=== PATIENT | male | born 1970 | race Caucasian/White ===

== ENCOUNTER → 2016-12-17 | Outpatient (CLI) | payer BC ==
[~2016-12-17] MED LIST: ALLERGY INJ; CETI10TA84 PO; CRS/10 PO; FLUT0.15 NAE; LISI-787 PO; LPR50X PO; MONT1TAB3 PO; NAPR-1169 PO; PRLSR20 PO; PROAIR HFA INH; SYMIN160 INH
[2016-12-17 17:53] LABS: ESTIMATED AVERAGE GLUCOSE 111 mg/dl; HA1C FLAG Normal (Normal)
== END | disposition home or self-care (01) ==
LOC: C.LABMFLN 08:00
PROVIDERS: ATTEND Family Medicine
DX: R73.01 Impaired fasting glucose (principal)

== ENCOUNTER → 2017-05-05 | Outpatient (CLI) | payer OTHER, BC ==
[2017-05-05 13:49] LABS: INR 0.9 (0.9-1.1); PARTIAL THROMBOPLASTIN RATIO 0.9; PROTHROMBIN TIME (PATIENT) 9.5 SECONDS (9.0-12.0)
--- NOTE | 2017-05-12 06:01 | CODING QUERY NO DIAGNOSIS ---
TREATMENT RENDERED WITHOUT A DIAGNOSIS To promote full compliance with coding requirements relating to patient care, physician participation is requested in all cases of administration manager uncertainty. Please assist us with providing a diagnosis/symptom for the test(s) below: A diagnosis/symptom was not documented on your Order. A valid diagnosis/symptom is required to bill all insurances. Please remember that we are unable to code a diagnosis of rule out, probable, possible, questionable, or suspected. DATE OF SERVICE: 05/05/17 (NOTE: NO ORDER IS FOUND IN OUR SYSTEM) Tests that require a diagnosis: * PROTHROMBIN TIME DIAGNOSIS: Provider Signature: Date: Thank you Disha Huston [facility] Information Management Once completed, please kindly fax back to [phone] For questions please call [phone]
== END | disposition home or self-care (01) ==
LOC: C.LABMFLN 09:45
PROVIDERS: ATTEND Physician Assistant Medical
DX: Z01.812 Encounter for preprocedural laboratory examination (principal); M51.9 Unspecified thoracic, thoracolumbar and lumbosacral intervertebral disc disorder

== ENCOUNTER 2017-05-12 11:37 | Observation (INO) | payer OTHER, BC ==
[2017-05-04 12:05] VITALS: BMI 31.0
--- NOTE | 2017-05-04 12:26 | PAT Medication Instructions ---
Service Date May 04, 2017. Current Home Medication List Budesonide/Formoterol Fumarate (Symbicort 160/4.5 Inhaler ), 2 PUFFS INH BID Cetirizine (Zyrtec), 10 MG PO QAM Fluticasone Propionate (Nasal) (Flonase Allergy Relief), 2 SPRAYS KRYSTYNA QAM Lisinopril/Hctz (Zestoretic 20MG/12.5MG), 1 TAB PO QAM Metoprolol Tartrate (Metoprolol Tartrate), 1 TAB PO BID Montelukast Sodium (Singulair), 10 MG PO QAM Naproxen (Naprosyn), 500 MG PO 3XWK PRN for Pain Omeprazole (Prilosec), 40 MG PO QAM Rosuvastatin Calcium (Crestor), 10 MG PO QPM [Allergy Inj] [Proair Hfa ], 2 PUFFS INH Q4WK PRN for Cough Medication Instructions For Your Scheduled Surgery - Hold the following medications the morning of surgery: Lisinopril/Hctz (Zestoretic 20MG/12.5MG), 1 TAB PO QAM Cetirizine (Zyrtec), 10 MG PO QAM Naproxen (Naprosyn), 500 MG PO 3XWK PRN for Pain (otherwise okay to continue per surgeon) - Take the following medications the morning of surgery with a sip of water OTHERWISE NOTHING TO EAT OR DRINK AFTER MIDNIGHT: Budesonide/Formoterol Fumarate (Symbicort 160/4.5 Inhaler ), 2 PUFFS INH BID Omeprazole (Prilosec), 40 MG PO QAM [Proair Hfa ], 2 PUFFS INH Q4WK PRN for Cough (use if needed; BRING TO HOSPITAL) Montelukast Sodium (Singulair), 10 MG PO QAM Metoprolol Tartrate (Metoprolol Tartrate), 1 TAB PO BID Fluticasone Propionate (Nasal) (Flonase Allergy Relief), 2 SPRAYS KRYSTYNA QAM - Take the following medications as scheduled the night before surgery: Budesonide/Formoterol Fumarate (Symbicort 160/4.5 Inhaler ), 2 PUFFS INH BID Rosuvastatin Calcium (Crestor), 10 MG PO QPM [Proair Hfa ], 2 PUFFS INH Q4WK PRN for Cough Metoprolol Tartrate (Metoprolol Tartrate), 1 TAB PO BID If you have any questions please call us at [phone] or [phone] or [phone]
--- NOTE | 2017-05-04 13:12 | DIAGNOSTIC IMAGING REPORT ---
TWO VIEW CHEST CLINICAL HISTORY: Preoperative examination. Chronic cough. FINDINGS: PA and lateral chest radiographs are obtained. No prior studies are available for comparison at the time of dictation. The cardiomediastinal silhouette is unremarkable. There are low lung volumes. The lungs and pleural spaces are clear. There is no pneumothorax. The bony thorax appears intact. IMPRESSION: Low lung volumes with no active disease in the chest. Electronically signed by: Candelario Whitmore M.D. 05/04/2017 1:11 PM Dictated Date/Time: 05/04/2017 1:10 PM
[2017-05-04 13:21] LABS: BASO % 0.9 %; COMPLETE YES; EOS % 3.2 %; HEMATOCRIT 44.8 % (42-52); IG% 0.4 %; LYMPH % 28.9 %; LYMPH ABS # 3.21 K/uL (1.2-3.4); MEAN CELL VOLUME 94.3 fL (80-100); MEAN CORPUSCULAR HEMOGLOBIN 32.4 pg (25-34); MEAN CORPUSCULAR HGB CONC 34.4 g/dl (32-36); MEAN PLATELET VOLUME 10.3 fL (7.4-10.4); MONO % 7.5 %; NEUT % 59.1 %; PLATELET COUNT 293 K/uL (130-400); RED BLOOD COUNT 4.75 M/uL (4.7-6.1); WHITE BLOOD COUNT 11.12 K/uL (4.8-10.8)
[2017-05-04 13:32] LABS: URINE APPEARANCE CLEAR (CLEAR); URINE BILIRUBIN NEG (NEG); URINE COLOR YELLOW; URINE NITRITE NEG (NEG); URINE SPECIFIC GRAVITY 1.017 (1.000-1.030); UROBILINOGEN NEG (NEG)
[2017-05-04 13:37] LABS: BUN/CREATININE RATIO 7.7 (10-20); CALCIUM 9.9 mg/dl (8.5-10.1); CREATININE 1.3 mg/dl (0.60-1.40); POTASSIUM 4.4 mmol/L (3.5-5.1)
[2017-05-04 13:38] LABS: MANUAL MICROSCOPIC REQUIRED? NO; REVIEW REQ? NO
[2017-05-12] VITALS (7 sets, daily range): BP systolic 110–136; BP diastolic 73–93; PULSE 84–106; TEMP 36.4–37.3; O2SAT 96–97; Ht 172.7 cm; Wt 93.9 kg
[~2017-05-12] VITALS: Ht 172.7 cm; Wt 93.9 kg
[~2017-05-12 11:37] MED LIST changes: +CEFAZOLIN 2000 MG/60 ML D5W 60 ML IV SCH; +LACTATED RINGER'S 1000ML 1,000 ML IV SCH; +NSS 1000ML IV SCH
[2017-05-12] MEDS ORDERED: MIDAZOLAM HCL 1 MG/ML 2ML VIAL ONE (12:07)
[2017-05-12] MEDS ORDERED: HYDROmorphone INJ 2 MG/ML SYR/VIAL ONE (12:07)
[2017-05-12] MEDS ORDERED: KETAMINE HCL INJ 50 MG/ML 10 ML VIAL ONE (12:07)
[2017-05-12] MEDS ORDERED: FENTANYL CITRATE INJ 50 MCG/1 ML 2 ML VIAL ONE ×2 (12:07→14:58)
[2017-05-12] MEDS ORDERED: LARYING-O-JET KIT (LTA) ONE ×2 (12:12)
--- NOTE | 2017-05-12 13:11 | History and Physical ---
History & Physical Date May 12, 2017. Chief Complaint Back and lower extremity difficulty pain and legs giving way History of Present Illness The patient is a 46 year old male with complaints of back and lower extremity difficulty paresthesias and numbness is a delightful patient known him for approximately 1 year in duration we treated him conservatively for all left. He was worked up extensively for pathology both cervical spine and the lumbar spine. Determined with spinal stenosis and disc herniation L4 5. His major problem. He is here for elective surgery L4 5 laminectomy and discectomy. He has failed all forms of conservative measures Additional History Hepatic Disease: No Endocrine Disorder: No Kidney Disease: No Hypertension: No Heart Disease: No Bleeding Tendencies: No Infectious Diseases: No Allergies Coded Allergies: No Known Allergies (Unverified , 05/12/17) Home Medications Scheduled Budesonide/Formoterol Fumarate (Symbicort 160/4.5 Inhaler ), 2 PUFFS INH BID Cetirizine (Zyrtec), 10 MG PO QAM Fluticasone Propionate (Nasal) (Flonase Allergy Relief), 2 SPRAYS KRYSTYNA QAM Lisinopril/Hctz (Zestoretic 20MG/12.5MG), 1 TAB PO QAM Metoprolol Tartrate (Metoprolol Tartrate), 1 TAB PO BID Montelukast Sodium (Singulair), 10 MG PO QAM Omeprazole (Prilosec), 40 MG PO QAM Rosuvastatin Calcium (Crestor), 10 MG PO QPM Scheduled PRN Naproxen (Naprosyn), 500 MG PO 3XWK PRN for Pain [Proair Hfa ], 2 PUFFS INH Q4WK PRN for Cough Miscellaneous Medications [Allergy Inj] Physical Examination Skin: warm/dry, no rash Eyes: normal inspection ENT: normal ENT inspection, pharynx normal Head: normocephalic Neck: supple, trachea midline Respiratory/Chest: lungs clear, no respiratory distress Cardiovascular: regular rate, rhythm Abdomen / GI: normal bowel sounds Back: normal inspection Extremities: + pertinent finding (pain with straight leg raising numbness and tingling slight weakness of quadriceps and dorsiflexion on the right) Diagnosis Spinal stenosis and disc herniation L4 5 lumbar ASA Classification: ASA Class II Plan of Treatment Lumbar spine laminectomy L4 5 and discectomy L4 5. Estimated stay in the hospital 24 hours. Thank
[2017-05-12] MEDS ORDERED: BACITRACIN 50000 UNIT VIAL ONE (13:15)
[2017-05-12] MEDS ORDERED: THROMBIN FOR SOLN 20000 UNIT KIT ONE (13:15)
[2017-05-12] MEDS ORDERED: VANCOMYCIN HCL 1000MG/20ML VIAL ONE (13:15)
[2017-05-12] MEDS ORDERED: GELATIN SPONGE SZ 100 ONE (13:15)
[2017-05-12] MEDS ORDERED: BUPIVACAINE 0.5 % 5 MG/1 ML MPF 30ML VIAL ONE (13:17)
--- NOTE | 2017-05-12 14:42 | DIAGNOSTIC IMAGING REPORT ---
INTRAOPERATIVE FLUOROSCOPIC IMAGE OF THE LUMBAR SPINE CLINICAL HISTORY: L4-L5 laminectomy. COMPARISON STUDY: Lumbar spine MRI August 24, 2016. Fluoroscopy time: 6.6 seconds. FINDINGS: Single lateral fluoroscopic image demonstrates a surgical instrument directed toward the posterior aspect at the L4-L5 disc space. IMPRESSION: Intraoperative localization of the L4-L5 disc space. Electronically signed by: Estevan Kay M.D. 05/12/2017 2:40 PM Dictated Date/Time: 05/12/2017 2:39 PM
--- NOTE | 2017-05-12 14:51 | [facility] Operative Report ---
Operative Report Operative Date May 12, 2017. Pre-Operative Diagnosis Spinal stenosis and disc herniation L4 5 lumbar Post-Operative Diagnosis Spinal stenosis and disc herniation L4 5 lumbar Procedure(s) Performed L4-L5 Laminectomy and discectomy L4 [address] Baltazar Belle Director Of Exhibit Development Surgeon(s) Pillo Zabala PA-C Estimated Blood Loss 25mL Findings Spinal stenosis and disc herniation L4 5 Specimens None Drains one Hemovac Anesthesia Gen. Complication(s) None Disposition Recovery Room / PACU Indications Back and lower extremity difficulty paresthesias numbness tingling weakness Description of Procedure Patient was taken to the operating room. General intubated anesthetic provided patient. A frederick placed prone to tissue areas protected. With Betadine prep with ChloraPrep. Draped sterile A skin incision fashion incision dissecting the soft tissue muscle breaker layer over the facet joints we came down at the pedicle for we went down 2 cm to the bottom of the lamina. We did a laminectomy Central L4 5 foraminotomies partial facetectomies we protected all stability structures I then retracted the dura and nerve root to a medial direction off the right-hand side at a formal discectomy with various size pituitary rongeurs. Final x-ray obtained demonstrating the proper area of the spine. We irrigated thoroughly placed some Gelfoam over the dural structures 1 g of vancomycin powder placed. Hemovac drain placed as well to close fascia fashion with 1 Vicryl suture to well on the subcuticular layer and 3-0 nylon the skin and sterile dressing applied patient returned to recovery room satisfactory and stable there were no apparent interoperative complications. Sponge and needle count correct at the close. Thank you I attest to the content of the Intraoperative Record and any orders documented therein. Any exceptions are noted below.
[2017-05-12] MEDS ORDERED: GLYCOPYRROLATE INJ 0.2 MG/ML VIAL ONE (14:56)
[2017-05-12] MEDS ORDERED: LIDOCAINE HCL 2% 2 ML VIAL (20MG/ML) ONE (14:56)
[2017-05-12] MEDS ORDERED: NEOSTIGMINE METHYLSULFATE 5 MG/5 ML SYR ONE (14:56)
[2017-05-12] MEDS ORDERED: ONDANSETRON INJ 2 MG/ML 2 ML VIAL ONE (14:56)
[2017-05-12] MEDS ORDERED: PROPOFOL IV EMULSION 10 MG/ML 20 ML VIAL IV ONE (14:56)
[2017-05-12] MEDS ORDERED: PHENYLEPHRINE HCL INJ 10 MG/ML VIAL ONE (14:56)
[2017-05-12] MEDS ORDERED: ROCURONIUM BROMIDE 10 MG/ML 5 ML VIAL ONE (14:56)
[2017-05-12] MEDS ORDERED: DEXAMETHASONE SOD INJ 4 MG/ML VIAL ONE (14:56)
[2017-05-12] MEDS ORDERED: OXYCODONE/ACETAMINOPHEN 5-325 TAB PO PRN ×2 (15:00)
[2017-05-12] MEDS ORDERED: HYDROmorphone INJ 1 MG/ML SYR IV PRN (15:00)
[2017-05-12] MEDS ORDERED: ACETAMINOPHEN 325 MG TAB PO PRN (15:00)
[2017-05-12] MEDS ORDERED: HYDROmorphone INJ 2 MG/ML SYR/VIAL IV PRN ×2 (15:00→15:15)
[2017-05-12] MEDS ORDERED: ALBUTEROL HFA INHALER 18 GM INH PRN (15:00)
[2017-05-12] MEDS ORDERED: MAGNESIUM HYDROXIDE SUSP 30 ML UDC PO PRN (15:00)
[2017-05-12] MEDS ORDERED: PROMETHAZINE HCL INJ 12.5 MG in SODIUM CHLORIDE 0.9% 50ML 50 ML IV PRN (15:00)
[2017-05-12] MEDS ORDERED: LORAZEPAM INJ 1 MG in SYRINGE 0 ML IV PRN (15:00)
[2017-05-12] MEDS ORDERED: METOCLOPRAMIDE HCL INJ 5 MG/ML 2 ML VIAL IV PRN (15:00)
[2017-05-12] MEDS ORDERED: ONDANSETRON INJ 2 MG/ML 2 ML VIAL IV PRN ×2 (15:00→15:15)
[2017-05-12] MEDS ORDERED: LORAZEPAM 1 MG TAB PO PRN (15:00)
[2017-05-12] MEDS ORDERED: FLUMAZENIL 0.1 MG/1 ML 10 ML VIAL IV PRN (15:15)
[2017-05-12] MEDS ORDERED: MEPERIDINE HCL 25 MG/ML CARP IV PRN (15:15)
[2017-05-12] MEDS ORDERED: NALOXONE HCL 0.4 MG/1 ML VIAL/CARP IV PRN (15:15)
[2017-05-12] MEDS ORDERED: ATROPINE SULFATE 0.1 MG/ML 5ML SYR IV PRN (15:15)
[2017-05-12] MEDS ORDERED: FENTANYL CITRATE INJ 50 MCG/1 ML 2 ML VIAL IV PRN (15:15)
[2017-05-12] MEDS ORDERED: PHENYLEPHRINE 100MCG/ML 5ML SYR IV PRN (15:15)
[2017-05-12] MEDS ORDERED: LABETALOL HCL IV 5 MG/ML 20ML IV PRN (15:15)
[2017-05-12] MEDS ORDERED: EpHEDrine SULFATE INJ 50 MG/ML AMP IV PRN (15:15)
[2017-05-12] MEDS ORDERED: HYDROmorphone INJ 1 MG/ML SYR ONE (15:29)
[2017-05-12] MEDS ORDERED: IV FLUIDS COMPLETED PRN (15:30)
--- NOTE | 2017-05-12 15:42 | Anesthesiology Progress Note ---
Anesthesia Post Op Note Date & Time May 12, 2017 at 15:42 Vital Signs Pain Intensity: 3 Vital Signs Past 12 Hours Date Time Temp Pulse Resp B/P (MAP) Pulse Ox O2 Delivery O2 Flow Rate FiO2 05/12/17 15:30 95 16 132/96 97 Nasal Cannula 2 05/12/17 15:20 73 16 141/79 94 Nasal Cannula 2 05/12/17 15:10 78 16 149/89 97 Oxymask 8 05/12/17 15:00 78 16 148/92 100 Oxymask 8 05/12/17 14:47 36.6 80 16 183/90 99 Oxymask 8 05/12/17 12:15 37.3 106 20 134/93 (107) 97 Room Air Notes Mental Status: alert / awake / arousable, participated in evaluation Pt Amnestic to Procedure: Yes Nausea / Vomiting: adequately controlled Pain: adequately controlled Airway Patency, RR, SpO2: stable & adequate BP & HR: stable & adequate Hydration State: stable & adequate Anesthetic Complications: no major complications apparent
[2017-05-12] MEDS: LISINOPRIL/HCTZ 20/12.5MG TAB PO SCH (17:54)
[2017-05-12] MEDS ORDERED: SODIUM CHLORIDE 0.9% 1000ML 1,000 ML IV SCH (18:00)
[2017-05-12] MEDS: KETOROLAC TROMETHAMINE 30 MG/ML VIAL IV. SCH (18:11)
[2017-05-12] MEDS: METOPROLOL TARTRATE 50 MG TAB PO SCH (20:46)
[2017-05-12] MEDS: BUDESONIDE/FORMOTEROL FUMARATE 160/4.5 60 PUFFS/INHALER INH SCH (20:46)
[2017-05-12] MEDS ORDERED: MONTELUKAST SOD 10 MG TAB PO SCH (21:00)
[2017-05-12] MEDS ORDERED: ROSUVASTATIN CALCIUM 10 MG TAB PO SCH (21:00)
[2017-05-12] MEDS: CEFAZOLIN IV 2,000 MG in DEXTROSE 5% 50ML 50 ML IV SCH (21:47)
[2017-05-13] MEDS: KETOROLAC TROMETHAMINE 30 MG/ML VIAL IV. SCH ×3 (00:22→12:18)
[2017-05-13 03:13] VITALS: BP 115/80; PULSE 78; TEMP 36.5; O2SAT 96
[2017-05-13] MEDS ORDERED: NURSING VERBAL MED ORDER ONE (05:00)
[2017-05-13] MEDS: CEFAZOLIN IV 2,000 MG in DEXTROSE 5% 50ML 50 ML IV SCH (05:39)
[2017-05-13] MEDS ORDERED: BISACODYL 10 MG SUPP PR PRN (06:00)
[2017-05-13] MEDS ORDERED: BISACODYL 5 MG TABEC PO PRN (06:00)
[2017-05-13 07:05] VITALS: BP 111/68; PULSE 66; TEMP 36.8; O2SAT 96
--- NOTE | 2017-05-13 08:00 | Anesthesiology Progress Note ---
Anesthesia Post Op Note Date & Time May 13, 2017 at 07:59 Vital Signs Vital Signs Past 12 Hours Date Time Temp Pulse Resp B/P (MAP) Pulse Ox O2 Delivery O2 Flow Rate FiO2 05/13/17 07:05 36.8 66 16 111/68 (82) 96 Room Air 05/13/17 03:13 36.5 78 16 115/80 (92) 96 Room Air 05/13/17 00:15 Room Air 05/12/17 23:02 36.9 87 16 110/73 (85) 96 Room Air Notes Mental Status: alert / awake / arousable, participated in evaluation Pt Amnestic to Procedure: Yes Nausea / Vomiting: adequately controlled Pain: adequately controlled Airway Patency, RR, SpO2: stable & adequate BP & HR: stable & adequate Hydration State: stable & adequate Anesthetic Complications: no major complications apparent
--- NOTE | 2017-05-13 08:01 | Discharge Instructions ---
Discharge Instructions Date of Service May 13, 2017. Admission Reason for Admission: L4-L5 Disc Herniation Discharge Discharge Diagnosis / Problem: stenosi and disc Discharge Goals Goal(s): Improve function Activity Recommendations Activity Limitations: as noted below Lifting Limitations: no more than 5 pounds Exercise/Sports Limitations: until after follow-up appointment May Resume Sexual Activity: after follow-up appointment Shower/Bathe: keep incision dry Careful bending stooping lifting. Keep the wound clean and dry at all times . Instructions / Follow-Up Instructions / Follow-Up MEDICATIONS: Please take your prescriptions as instructed at your pre-op appointment. SPECIAL CARE: The following information is intended to answer some of the common questions and concerns regarding your surgery. Each patient is an individual and receives individual counselling throughout the course of treatment, from diagnosis to surgery all the way through recovery. What follows is not an exhaustive list, but should be a useful guide to some of the common questions and concerns patients have regarding their surgeries. These are not provided to keep you from calling us; rather, they give you something accurate and concrete to reference as you recover from your procedure. If you need us, we are available to you. As always, if you are not sure about something, call us at [phone]. MEDICAL EMERGENCIES: For these conditions, call 911 or go to your local hospital-based Emergency Department - not [facility] or equivalent. * Paralysis * Severe chest pain or difficulty breathing * Swelling or redness of either leg Spine procedures can be rather complex and though complications are rare, they do occur. In such cases, effective advice regarding emergency situations cannot always be addressed over the telephone. You may be referred to the emergency department for more effective management of your problem. Activity Limitations: It is important to give your body time to heal, so please limit your activities : * In general, don't do anything that moves your spine too much. You should avoid contact sports, twisting or heavy lifting while you recover. * 5-10 pounds is all you should attempt to lift. * You should not plan on driving for approximately 3 weeks and you should avoid traveling more than 30-45 minutes at a time. Longer trips should be broken down with walking breaks spaced appropriately. * Physical therapy is not usually required. * Walking and good posture practices will help you recover and regain your function. * Avoid straining or sudden changes in position. * In general, the goal is to take it easy and recover. Don't cause any new problems. Just relax. Showers: * Do not take a bath, use a Jacuzzi or hot tub or otherwise submerge your incision. * It is usually safe to take a shower 4-5 days after your surgery. * Your incision does not require any special creams or ointments. * Simply clean it with soap and water, dry and re-dress with a clean bandage afterwards. Incision: * Keep incision clean, dry and protected until your first follow-up appointment. * Some amount of drainage and redness is normal. Any drainage should be fairly clear and not have a foul odor. * If you feel anything is wrong or you have excessive drainage, please call us. * Your stitches and savana will be removed 10-14 days after your surgery. At the time of your first post-op visit. * Neck surgeries are typically closed with a suture underneath the skin. The steri-strips over the incision should be maintained until we see you in the office. Bracing: * You may be provided with a back or neck brace to encourage good posture and prevent injury. It will remind you not to do too much as you heal and will alert others to the fact that you have had a surgery. * Back braces may be removed for showers and when you are resting at home. They must be worn when you are walking around for any period of time or for travel. * For neck surgery, you will likely be provided with two cervical collars. The soft collar ([place] or foam rubber) is worn most commonly throughout the day and while sleeping. The plastic collar (provided at the hospital) is for showering/bathing. * Except while eating, collars should remain in place. More specifically, bracing is provided for a purpose and should be worn. * Please obtain your brace or collars prior to your operation and bring them to the hospital with you on the day of surgery. * You should also bring your collars to your post-op appointment with Dr. Belle. You should always take good care of your body and practice healthy habits, especially following surgery. You should: * Follow your doctor's treatment plan * Sit and stand properly with good posture (ears over shoulders, shoulders over hips) Don't slouch * Learn to lift correctly * Exercise regularly (low-impact aerobic exercise is especially good, but check with your doctor first) * Generally, be up and walking for 5-10 minutes at a time at least 3-4 times per day from the day you get home * Increasing walking to tolerance until you can walk for 20-30 minutes at a time * Attain and maintain a healthy body weight * Eat healthy foods ( a well-balanced, low-fat diet rich in fruits and vegetables) and get enough calcium * Avoid excessive use of alcohol When to call our office - If you notice any of the following: * Increased pain not relieve by pain medicine * Fevers greater then 100 degrees F, chills or flu symptoms * Increased redness around incision * Drainage from the incision that is not clear * Any foul smelling drainage * Swelling or fluid collection beneath the skin Miscellaneous: * In the hospital, you may be given a walker or cane for support while walking. These are temporary needs and are intended to prevent injuries due to falls. You may discontinue them when you feel strong and steady enough on your feet. * Sleep in a comfortable position. We find that many patients find a lounge chair or recliner with several pillows to be beneficial in the early post-operative period. * The support stockings should be used for 7-10 days and may be discontinued when you are back to walking more and conducting usual household activities. No problem is insignificant. We are here to help you and get you well. Contact us at [phone]. Definitions: Foraminotomy: If part of the disc or a bone spur (osteophyte) is pressing on a nerve as it leaves the vertebra (through an exit called the foramen), a foraminotomy may be done. Otomy means "to make an opening." A foraminotomy is making the opening of the foramen larger, so the nerve can exit without being compressed. Laminotomy: Similar to the foraminotomy, a laminotomy makes a larger opening, this time in your bony plate protecting your spinal canal and spinal cord (the lamina). The lamina may be pressing on your nerve, so the surgeon may make more room for the nerves using a laminotomy. Laminectomy: Sometimes, a laminotomy is not sufficient. The surgeon may need to remove all or part of the lamina. This procedure is called a laminectomy. This can often be done at many levels without any harmful effects. Current Hospital Diet Patient's current hospital diet: Regular Diet Discharge Diet Recommended Diet: Regular Diet Procedures Procedures Performed: L4-L5 Laminectomy and discectomy L4 5 Pending Studies Studies pending at discharge: no Medical Emergencies . Who to Call and When: Medical Emergencies: If at any time you feel your situation is an emergency, please call 911 immediately. . Non-Emergent Contact Non-Emergency issues call your: Surgeon . "Provider Documentation" section prepared by Baltazar Belle. . VTE Core Measure Inpt VTE Proph given/why not?: Treatment not indicated
--- NOTE | 2017-05-13 08:03 | Discharge Summary ---
Orthopedic Discharge Summary Admission Date/Reason May 12, 2017 at 13:00 L4-L5 Disc Herniation. Discharge Date/Disposition May 13, 2017 Home Diagnosis Principal Diagnosis: Disc herniation and spinal stenosis Procedure(s) Performed Laminectomy and discectomy L4-L5 Admission Physical Exam As per Admitting History & Physical. Hospital Course Patient was stabilized post surgery discharged home within 24 hours he had no complications alert oriented no chest pain shortness of breath or confusion Discharge Instructions Please refer to the electronic Patient Visit Report (Discharge Instructions) for additional information.
[2017-05-13] MEDS ORDERED: CETIRIZINE HCL 10 MG TAB PO SCH (09:00)
[2017-05-13] MEDS ORDERED: PANTOprazole SOD 40 MG TAB PO SCH (09:00)
[2017-05-13] MEDS ORDERED: POLYETHYLENE (MIRALAX) 17 GM PACK PO SCH (09:00)
[2017-05-13] MEDS ORDERED: FLUTICASONE PROPIONATE NA SPR 16 GM BTL NAE SCH (09:00)
[2017-05-13] MEDS: BUDESONIDE/FORMOTEROL FUMARATE 160/4.5 60 PUFFS/INHALER INH SCH (09:35)
[2017-05-13] MEDS: METOPROLOL TARTRATE 50 MG TAB PO SCH (09:36)
[2017-05-13] MEDS: LISINOPRIL/HCTZ 20/12.5MG TAB PO SCH (09:37)
[2017-05-13 11:13] VITALS: BP 111/68; PULSE 66; TEMP 36.8; O2SAT 96
[2017-05-13 11:55] VITALS: BP 126/83; PULSE 65; TEMP 36.9; O2SAT 96
== END 2017-05-13 13:00 | disposition home or self-care (01) ==
LOC: C.ACU 11:37 → C.MSW 13:00 → ENRESERV 15:24
PROVIDERS: ADMIT Orthopaedic Surgery Orthopaedic Surgery of the Spine; ATTEND Orthopaedic Surgery Orthopaedic Surgery of the Spine
DX: M48.06 Spinal stenosis, lumbar region (principal); Z79.899 Other long term (current) drug therapy